=== PATIENT | male | born 1970 | race African-American/Black ===

== ENCOUNTER 2018-12-04 17:05 | Emergency (ER) | payer SELFPAY ==
[~2018-12-04] VITALS: Ht 188 cm; Wt 127.9 kg
[2018-12-04 17:37] VITALS: BP 208/123
[2018-12-04] MEDS ORDERED: NAPROXEN 500 MG TABLET PO STA (17:38)
[2018-12-04] MEDS ORDERED: HYDR-3164 PO (17:45)
[2018-12-04] MEDS ORDERED: HYDROcodone/APAP 5/325MG 1 TAB TABLET PO ONE (17:45)
[2018-12-04] MEDS ORDERED: diazePAM 5 MG TABLET PO ONE (17:45)
[2018-12-04] MEDS ORDERED: AMOX875T PO (17:45)
--- NOTE | 2018-12-04 17:45 | PHYS DOC ---
Past Medical History Past Medical History: Hypertension (EMMY OCNLEY DO) Past Surgical History: No Surgical History (EMMY CONLEY DO) Smoking: Cigarettes Alcohol Use: Heavy Drug Use: None (EMMY CONLEY DO) Adult General Chief Complaint Chief Complaint: DENTAL PROBLEM HPI HPI Patient is a 48 year old male with no significant medical history who presents to the ED today complaining of moderate pain to the left upper gum that began today while eating hamburgers and fries. Denies anything specifically exacerbating or pain. He states he has not tried anything for pain. Describes the pain as sharp and constant. (JAMMIE SALCEDO APRN) Review of Systems Review of Systems Constitutional: Denies fever or chills [] HENT: Reports left upper gum dental pain. Denies nasal congestion or sore throat [] Missing tooth #13, scattered dental caries especially on the left upper molars, no gum erythema, no gum swelling Musculoskeletal: Denies back pain or joint pain [] Integument: Denies rash or skin lesions [] Neurologic: Denies headache, focal weakness or sensory changes [] All other systems were reviewed and found to be within normal limits, except as documented in this note. (JAMMIE SALCEDO APRN) Current Medications Current Medications Current Medications Medications (Trade) Dose Ordered Sig/Mela Start Time Stop Time Status Last Admin Dose Admin Acetaminophen/ Hydrocodone Bitart (Lortab 5/325) 1 tab 1X ONCE 12/04/18 17:45 12/04/18 17:46 DC 12/04/18 17:57 1 TAB Diazepam (Valium) 5 mg 1X ONCE 12/04/18 17:45 12/04/18 17:46 DC 12/04/18 17:57 5 MG Naproxen (Naprosyn) 500 mg 1X STAT 12/04/18 17:38 12/04/18 17:45 DC 12/04/18 17:57 500 MG (EMMY CONLEY DO) Allergies Allergies Allergies Coded Allergies Type Severity Reaction Last Updated Verified No Known Drug Allergies 12/04/18 No (EMMY CONLEY DO) Physical Exam Physical Exam Constitutional: Well developed, well nourished, no acute distress, non-toxic ap pearance. [] HENT: Normocephalic, atraumatic, bilateral external ears normal, oropharynx moist, no oral exudates, nose normal. [] Eyes: PERRLA, EOMI, conjunctiva normal, no discharge. [] Neck: Normal range of motion, no tenderness, supple, no stridor. [] Cardiovascular:Heart rate regular rhythm, no murmur [] Lungs & Thorax: Bilateral breath sounds clear to auscultation [] Abdomen: Bowel sounds normal, soft, no tenderness, no masses, no pulsatile masses. [] Skin: Warm, dry, no erythema, no rash. [] Back: No tenderness, no CVA tenderness. [] Extremities: No tenderness, no cyanosis, no clubbing, ROM intact, no edema. [] Neurologic: Alert and oriented X 3, normal motor function, normal sensory function, no focal deficits noted. [] Psychologic: Affect normal, judgement normal, mood normal. [] (JAMMIE SALCEDO APRN) Current Patient Data Vital Signs Vital Signs Date Time Temp Pulse Resp B/P (MAP) Pulse Ox O2 Delivery O2 Flow Rate FiO2 12/04/18 17:57 16 99 Room Air 12/04/18 17:37 97.6 98 208/123 (151) 97.6 (EMMY CONLEY DO) EKG EKG [] (JAMMIE SALCEDO APRN) Radiology/Procedures Radiology/Procedures [] (JAMMIE SALCEDO APRN) Course & Med Decision Making Course & Med Decision Making Pertinent Labs and Imaging studies reviewed. (See chart for details) This is a 48-year-old male patient presented to the ED today with dental pain noted for dental caries. Will be discharged with amoxicillin. Follow-up with primary care doctor or the dentist in 1-2 weeks. (JAMMIE SALCEDO APRN) Dragon Disclaimer Dragon Disclaimer This electronic medical record was generated, in whole or in part, using a voice recognition dictation system. (JAMMIE SALCEDO APRN) Departure Departure Impression: Primary Impression: Dentalgia Additional Impression: Dental caries Disposition: 01 HOME, SELF-CARE Condition: STABLE Referrals: NON,STAFF (PCP) Please follow-up with your dentist next week Patient Instructions: Dental Caries Additional Instructions: You were evaluated in the emergency room for dental pain, we put you on antibiotics, ensure you complete them. Follow-up with your dentist in 1-2 weeks. Scripts Hydrocodone/Apap 5-325 (NORCO 5-325 TABLET) 1 Each Tablet 1 TAB PO Q6HRS, #12 TAB Prov: MELISSAGIULIAJAMMIE MONTGOMERY 12/04/18 Amoxicillin (AMOXICILLIN) 875 Mg Tablet 1 TAB PO BID, #14 TAB Prov: JAMMIE SALCEDO APRN 12/04/18 Attending Signature Attending Signature I have reviewed the PA/MANAGER ONLINE's note and plan of care. I was available for consultation as needed during the patient's visit in the emergency department. I agree with the clinical impression, plan, and disposition. (EMMY CONLEY DO) Problem Qualifiers JAMMIE SALCEDO APRN Dec 04, 2018 17:45 EMMY CONLEY DO Dec 05, 2018 03:53
== END 2018-12-04 18:22 | disposition home or self-care (01) ==
LOC: ER 17:05
DX: K02.9 Dental caries, unspecified (principal); I10 Essential (primary) hypertension; F17.210 Nicotine dependence, cigarettes, uncomplicated; F10.20 Alcohol dependence, uncomplicated; Y90.9 Presence of alcohol in blood, level not specified
CPT/HCPCS: 99284

== ENCOUNTER 2019-04-20 12:46 | Emergency (ER) | payer SELFPAY ==
[~2019-04-20] VITALS: Ht 188 cm; Wt 129.3 kg
[~2019-04-20 12:46] MED LIST: AMOX875T PO; HYDR-3164 PO
[2019-04-20 13:43] VITALS: BP 205/136
[2019-04-20] MEDS: ORPHENADRINE CITRATE 60 MG/2 ML VIAL. IM ONE (14:38)
[2019-04-20] MEDS: HYDROcodone/APAP 5/325MG 1 TAB TABLET PO ONE (14:38)
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
[2019-04-20] MEDS ORDERED: ORPH100T PO (15:33)
[2019-04-20] MEDS ORDERED: HYDR-3164 PO (15:33)
== END 2019-04-20 15:40 | disposition home or self-care (01) ==
LOC: ER 12:46
DX: M25.511 Pain in right shoulder (principal); M54.2 Cervicalgia; I10 Essential (primary) hypertension; F10.10 Alcohol abuse, uncomplicated; V49.9XXA Car occupant (driver) (passenger) injured in unspecified traffic accident, initial encounter; Y93.89 Activity, other specified; Y92.488 Other paved roadways as the place of occurrence of the external cause; Y99.8 Other external cause status
CPT/HCPCS: 72050; 73030; 96372; 99284; J2360